=== PATIENT | female | born 1980 | race Caucasian/White ===

== ENCOUNTER 2018-09-19 14:37 | Emergency (ER) | payer MEDICAID ==
[~2018-09-19] VITALS: Ht 157.5 cm; Wt 78.5 kg
[2018-09-19 14:54] VITALS: BP 134/100; Ht 157.5 cm; Wt 78.5 kg
== END 2018-09-19 16:30 | disposition home or self-care (01) ==
LOC: ED 14:37
DX: S90.01XA Contusion of right ankle, initial encounter (principal); Z98.51 Tubal ligation status; Z98.890 Other specified postprocedural states; W22.8XXA Striking against or struck by other objects, initial encounter; Y93.89 Activity, other specified; Y92.89 Other specified places as the place of occurrence of the external cause; Y99.0 Civilian activity done for income or pay